=== PATIENT | male | born 1980 | race Caucasian/White ===

== ENCOUNTER 2016-11-13 03:47 | Emergency (ER) | payer OTHER ==
[2016-11-13 03:59] VITALS: BP 114/70; PULSE 79; RESP 17; TEMP 97.8; O2SAT 99
--- NOTE | 2016-11-13 04:27 | ED PDOC ---
HPI: CCC, URI, Sore Throat Time Seen by Provider: 11/13/16 04:05 Chief Complaint (Nursing): ENT Problem Chief Complaint (Provider): left ear pain History Per: Patient Onset/Duration Of Symptoms: Days (1) Current Symptoms Are (Timing): Still Present Location Of Pain: Ear(s) (left) Sick Contacts (Context): None Ear Symptoms: Left: Ear Pain, Ear Fullness Additional Complaint(s): 36 yo , m, PMhx/o Asthma presents to Ed c/o left ear pain started yesterday afternoon. Patient reports nasal congestion for the last 7 days associated with sore throat, dry cough and fever only for the first 3 days of the last week. He denies , otorrhea, hearing loss, dizziness, headache, Hx/o ear infections, SOB, chest pain, N/V/D Past Medical History Vital Signs: Last Vital Signs Temp 97.8 F 11/13/16 03:54 Pulse 79 11/13/16 03:54 Resp 17 11/13/16 03:54 BP 114/70 11/13/16 03:54 Pulse Ox 99 11/13/16 04:44 - Medical History PMH: Asthma Denies: Diabetes, HTN - Family History Family History: States: Unknown Family Hx - Social History Alcohol: None Drugs: Denies - Home Medications Home Medications: Ambulatory Orders Medication Instructions Recorded Naproxen [Naprosyn] 500 mg PO BID PRN #30 tab 01/13/16 Amoxicillin 500 mg PO BID #14 tablet 11/13/16 - Allergies Allergies/Adverse Reactions: Allergies Allergy/AdvReac Type Severity Reaction Status Date / Time No Known Allergies Allergy Verified 01/13/16 13:52 Curb-65 Severity Score - CURB-65 Severity Score Respiratory Rate greater than/equal to 30: No Systolic BP <90 or Diastolic BP less than/equal 60mmHg: No Age >64: No Curb-65 Score: 0 Percentage 30-day mortality: 0.6% Review of Systems ENT: Positive for: Ear Pain (left side), Nose Discharge, Nose Congestion, Throat Pain Respiratory: Positive for: Cough Physical Exam - Physical Exam Appears: Positive for: Well, Non-toxic, No Acute Distress Head Exam: Positive for: ATRAUMATIC, NORMOCEPHALIC Skin: Positive for: Normal Color Eye Exam: Positive for: Normal appearance ENT: Positive for: Pharynx Is (redness), TM Is/Are (left TM yellowish color, not bulging, no perforation), Tonsillar Swelling. Negative for: Tonsillar Exudate Neck: Positive for: Normal, Supple Cardiovascular/Chest: Positive for: Regular Rate, Rhythm Respiratory: Positive for: Normal Breath Sounds. Negative for: Crackles, Rales , Rhonchi Gastrointestinal/Abdominal: Positive for: Normal Exam, Bowel Sounds, Soft. Negative for: Tenderness - ECG O2 Sat by Pulse Oximetry: 99 Medical Decision Making Medical Decision Makin yo , m, PMhx/o Asthma presents to Ed c/o left ear pain started yesterday afternoon. Patient reports nasal congestion for the last 7 days associated with sore throat, dry cough and fever only for the first 3 days of the last week Impression left otitis media Plan Amoxicillin 500 mg BID x 7 days. Disposition - Clinical Impression Clinical Impression: Left ear pain, Acute ear infection - Disposition Referrals: [facility] [Outside] [facility] [Outside] Disposition Time: 04:31 Condition: STABLE Additional Instructions: follow up with your doctor. return to the ED with any worsening or concerning symptoms Prescriptions: Amoxicillin 500 mg PO BID #14 tablet Instructions: Otitis Media (ED) Print Language: [place]
== END 2016-11-13 04:35 | disposition home or self-care (01) ==
LOC: H.ER 03:47
DX: H66.92 Otitis media, unspecified, left ear (principal); J02.9 Acute pharyngitis, unspecified